=== PATIENT | female | born 1995 | race Caucasian/White ===

== ENCOUNTER 2016-06-22 15:28 | Emergency (ER) | payer MEDICAID, OTHER | END 2016-06-22 17:53 | disposition home or self-care (01) | LOC: ED 15:28 | DX: S09.21XA Traumatic rupture of right ear drum, initial encounter (principal); S10.91XA Abrasion of unspecified part of neck, initial encounter; Y04.2XXA Assault by strike against or bumped into by another person, initial encounter; Y92.9 Unspecified place or not applicable ==